=== PATIENT | female | born 1990 | race Caucasian/White ===

== ENCOUNTER 2020-07-03 08:49 | Outpatient (CLI) | payer BC | END 2020-07-03 08:50 | disposition home or self-care (01) | LOC: DTY/OP 08:49 | PROVIDERS: ATTEND Nurse Practitioner Family | DX: E66.01 Morbid (severe) obesity due to excess calories (principal) | CPT/HCPCS: 97802 ==

== ENCOUNTER 2021-07-15 13:52 | Outpatient (CLI) | payer BC | END 2021-07-15 13:53 | disposition home or self-care (01) | LOC: DTY/OP 13:52 | PROVIDERS: ATTEND Specialist | DX: Z01.818 Encounter for other preprocedural examination (principal); E66.01 Morbid (severe) obesity due to excess calories | CPT/HCPCS: 97802 ==

== ENCOUNTER 2023-03-02 13:03 | Outpatient (CLI) | payer BC | END 2023-03-02 13:04 | disposition home or self-care (01) | LOC: DTY/OP 13:03 | PROVIDERS: ATTEND Specialist | DX: E66.01 Morbid (severe) obesity due to excess calories (principal) | CPT/HCPCS: 97802 ==

== ENCOUNTER 2023-08-02 09:30 | Inpatient (IN) | payer BC ==
[2023-08-10] MEDS ORDERED: Heparin 5,000 UNITS/ML VIAL ONE (09:50)
[2023-08-10] MEDS ORDERED: Ketorolac Tromethamine 30 MG/ML VIAL ONE (09:50)
[2023-08-10] MEDS ORDERED: Acetaminophen 500 MG TAB ONE (09:50)
[2023-08-10] MEDS ORDERED: Midazolam HCl 2 mg/2 ml Vial ONE ×2 (10:44→11:14)
[2023-08-10] MEDS ORDERED: Scopolamine 1.5 mg/72 hour Patch ONE (10:44)
[2023-08-10] MEDS ORDERED: EPINEPHrine 1 MG/ML AMP ONE (11:10)
[2023-08-10] MEDS ORDERED: Bupivacaine 0.25% HCL 30 ML VIAL ONE ×2 (11:10→12:03)
[2023-08-10] MEDS ORDERED: HYDROmorphone 0.5 MG/0.5 ML SYRINGE ONE ×2 (11:14→16:15)
[2023-08-10] MEDS ORDERED: fentaNYL PF 100 MCG/2 ML SYRINGE ONE ×2 (11:14→11:33)
[2023-08-10] MEDS ORDERED: Propofol 500 MG/50 ML VIAL ONE (11:15)
[2023-08-10] MEDS ORDERED: ePHEDrine Sulfate 50 MG/10 ML VIAL ONE (11:15)
[2023-08-10] MEDS ORDERED: Esmolol 100 MG/10 ML VIAL ONE (11:15)
[2023-08-10] MEDS ORDERED: SUGAMMADEX SODIUM 200 MG/2 ML VIAL ONE (11:15)
[2023-08-10] MEDS ORDERED: Ondansetron PF 4 MG/2 ML Vial ONE ×2 (11:15→11:40)
[2023-08-10] MEDS ORDERED: CEFAZOLIN 2 GM VIAL ONE (11:26)
[2023-08-10] MEDS ORDERED: Sodium Chloride 0.9% 100 ML ONE (11:26)
[2023-08-10] MEDS ORDERED: fentaNYL 50 mcg/mL 1 mL Vial ONE (11:33)
[2023-08-10] MEDS ORDERED: Rocuronium Bromide 10 MG/ML (10ML VIAL) ONE (11:40)
[2023-08-10] MEDS ORDERED: Lidocaine 1% PF 5 ML VIAL ONE (11:40)
[2023-08-10] MEDS ORDERED: PROPOFOL 200 MG/20 ML VIAL ONE (11:40)
[2023-08-10] MEDS ORDERED: Dexamethasone 20 MG/5 ML VIAL ONE (11:40)
[2023-08-10] MEDS ORDERED: diphenhydrAMINE 50 MG/ML VIAL ONE (11:40)
[2023-08-10] MEDS ORDERED: Rocuronium Bromide 50 MG/5 ML VIAL ONE (12:33)
[2023-08-10] MEDS ORDERED: Ondansetron HCl/PF 4 MG/2 ML Vial IVP PRN (12:51)
[2023-08-10] MEDS ORDERED: Promethazine HCl 25 MG/ML VIAL IM PRN ×2 (12:51→13:22)
[2023-08-10] MEDS ORDERED: Glucagon 1 MG/ML KIT IM PRN (13:22)
[2023-08-10] MEDS ORDERED: Ondansetron PF 4 MG/2 ML Vial IVP PRN (13:22)
[2023-08-10] MEDS ORDERED: Dextrose 5% in Water 1,000 ML IV PRN (13:22)
[2023-08-10] MEDS ORDERED: hydrALAZINE 20 MG/ML VIAL SLOW IVP PRN (13:22)
[2023-08-10] MEDS ORDERED: Dextrose 50% Abboject 50 ML SYRINGE SLOW IVP PRN (13:22)
[2023-08-10] MEDS ORDERED: diphenhydrAMINE 50 MG/ML VIAL IVP PRN (13:22)
[2023-08-10] MEDS ORDERED: Morphine 4 MG/ML VIAL SLOW IVP PRN ×2 (13:22→19:01)
[2023-08-10] MEDS ORDERED: Morphine 2 MG/ML VIAL SLOW IVP PRN (13:22)
[2023-08-10] MEDS ORDERED: Ipratropium/Albuterol 3 ML NEB NEB PRN (13:22)
[2023-08-10] MEDS ORDERED: Hydrocodone-Acetamin 15 ML UDCUP PO PRN (13:22)
[2023-08-10] MEDS ORDERED: Fentanyl 250 MCG/5 ML VIAL ONE (13:35)
[2023-08-10] MEDS: D5 1/2 NS w/20 mEq KCL 1,000 ML IV SCH ×2 (13:45→20:18)
[2023-08-10] MEDS ORDERED: D5 1/2 NS w/20 mEq KCL 1,000 ML ONE (14:21)
[2023-08-10] MEDS ORDERED: Promethazine HCl 25 MG/ML VIAL ONE (14:36)
[2023-08-10] MEDS: Ketorolac Tromethamine 30 MG/ML VIAL IVP SCH ×2 (18:30→20:18)
[2023-08-10 19:52] VITALS: BMI 54.1
[2023-08-10] MEDS ORDERED: DROSPIRENONE 4 MG PO SCH (21:00)
[2023-08-10] MEDS ORDERED: Lisinopril 10 MG TAB PO SCH (21:00)
[2023-08-11] MEDS: Ketorolac Tromethamine 30 MG/ML VIAL IVP SCH ×2 (03:48→09:25)
[2023-08-11] MEDS: D5 1/2 NS w/20 mEq KCL 1,000 ML IV SCH ×2 (03:49→13:19)
[2023-08-11 05:03] LABS: #Monocytes 0.6 thou/uL (0.11-0.59); #Neutrophils 8.1 thou/uL (1.40-6.50); %Basophils 0.1 % (0.0-1.0); %Eosinophils 0.1 % (0.0-10.0); %Lymphocytes 13.4 % (21.0-51.0); Hematocrit 35.2 % (36.0-47.0); Mean Corpuscular HGB CONC 31.3 g/dL (32.0-36.0); Mean Corpuscular Hemoglobin 26.9 pg (27.0-31.0); Mean Corpuscular Volume 86.1 fl (78.0-98.0); Mean Platelet Volume 10.9 fL (7.4-10.4); Platelet Count 233 10x3/uL (130-400); RBC Distribution Width 15.2 % (11.5-14.5); Red Blood Cell (RBC) Count 4.09 mill/uL (4.20-5.40); White Blood Cell (WBC) Count 10.1 10x3/uL (4.8-10.8)
[2023-08-11 05:33] LABS: Anion Gap 16 mmol/L (10-20); BUN (Urea Nitrogen) 9 mg/dL (7.0-18.7); Calc. Creatinine Clearance 252 mL/min (70-130); Calcium 9.1 mg/dL (7.8-10.44); Carbon Dioxide 19 mmol/L (22-29); Chloride 106 mmol/L (98-107); Estimated GFR 98; Glucose 127 mg/dL (70-105); Potassium 4.7 mmol/L (3.5-5.1); Sodium 136 mmol/L (136-145)
[2023-08-11] MEDS ORDERED: Pantoprazole 40 MG VIAL IVP SCH (09:00)
[2023-08-11 13:56] VITALS: BP 118/77; TEMP 97.6
[2023-08-13] MEDS ORDERED: FLU VACC QS2023-24(6MOS UP)/PF 60 MCG/0.5 ML SYRINGE IM ONE (09:00)
== END 2023-08-11 15:20 | disposition home or self-care (01) | DRG 621 ==
LOC: EDSTATUS 10:30 → SURG A 08-10 09:33 → SJJU 08-10 17:33
PROVIDERS: ADMIT Specialist; ATTEND Specialist
PROC: 0DB64Z3 Excision of Stomach, Percutaneous Endoscopic Approach, Vertical (ICD-10-PCS; principal; 2023-08-10)
PROC: 3E033XZ Introduction of Vasopressor into Peripheral Vein, Percutaneous Approach (ICD-10-PCS; 2023-08-10)
DX: E66.01 Morbid (severe) obesity due to excess calories (principal); G47.30 Sleep apnea, unspecified; F10.90 Alcohol use, unspecified, uncomplicated; Z68.43 Body mass index [BMI] 50.0-59.9, adult; Z82.49 Family history of ischemic heart disease and other diseases of the circulatory system; Z80.0 Family history of malignant neoplasm of digestive organs; Z88.5 Allergy status to narcotic agent; Z98.890 Other specified postprocedural states
CPT/HCPCS: 36415; 80048; 85025; 88307; C9113; J0171; J1100; J1170; J1200; J1644; J1650; J1885; J2250; J2270; J2272; J2405; J2550; J2704; J3010; J3480; J3490; S0020